=== PATIENT | female | born 2000 | race Caucasian/White ===

== ENCOUNTER 2021-08-01 21:08 | Outpatient (CLI) | payer BC | END 2021-08-01 21:34 | disposition home or self-care (01) | LOC: GENOP 21:08 | DX: O99.891 Other specified diseases and conditions complicating pregnancy (principal); R10.2 Pelvic and perineal pain; O23.43 Unspecified infection of urinary tract in pregnancy, third trimester; N39.0 Urinary tract infection, site not specified; O47.1 False labor at or after 37 completed weeks of gestation; Z3A.38 38 weeks gestation of pregnancy | CPT/HCPCS: 81001 ==

== ENCOUNTER 2021-08-12 17:31 | Inpatient (IN) | payer BC, OTHER ==
[~2021-08-12] VITALS: Ht 157.5 cm; Wt 88.9 kg
[2021-08-12 19:18] LABS: HEMOGLOBIN 13.5 gm/dl (12.3-15.3); RED BLOOD COUNT 4.11 M/UL (4.00-5.10); WHITE BLOOD COUNT 12.2 K/UL (4.5-11.0)
[2021-08-13] MEDS ORDERED: PRENATAL VITAM1 EAC3 PO (06:19)
[2021-08-13] MEDS ORDERED: TYLOPHEN500 MG PO (06:20)
[2021-08-14 06:20] LABS: HEMOGLOBIN 11.1 gm/dl (12.3-15.3)
[2021-08-16] MEDS ORDERED: HYDROCODON-ACE1 EAC4 PO (12:53)
[2021-08-16] MEDS ORDERED: FERROUS SULFAT325 M2 PO (12:53)
[2021-08-16] MEDS ORDERED: DOCUSATE SODIU100 MG PO (12:53)
[2021-08-16] MEDS ORDERED: DIFLUCAN150 MG PO (12:53)
[2021-08-16] MEDS ORDERED: IBUPROFEN600 MG PO (12:53)
== END 2021-08-16 14:41 | disposition home or self-care (01) | DRG 786 ==
LOC: GENOP 17:31 → OB 18:20
PROVIDERS: ADMIT Obstetrics & Gynecology
PROC: 4A1HXCZ Monitoring of Products of Conception, Cardiac Rate, External Approach (ICD-10-PCS; 2021-08-13)
PROC: 10907ZC Drainage of Amniotic Fluid, Therapeutic from Products of Conception, Via Natural or Artificial Opening (ICD-10-PCS; 2021-08-13)
PROC: 3E033VJ Introduction of Other Hormone into Peripheral Vein, Percutaneous Approach (ICD-10-PCS; 2021-08-13)
PROC: 10D00Z1 Extraction of Products of Conception, Low, Open Approach (ICD-10-PCS; principal; 2021-08-13 16:14)
DX: O76 Abnormality in fetal heart rate and rhythm complicating labor and delivery (principal); O41.1230 Chorioamnionitis, third trimester, not applicable or unspecified; O72.1 Other immediate postpartum hemorrhage; Z20.822 Contact with and (suspected) exposure to COVID-19; O99.214 Obesity complicating childbirth; E66.9 Obesity, unspecified; Z28.310 Unvaccinated for COVID-19; Z3A.39 39 weeks gestation of pregnancy; Z37.0 Single live birth; Z83.3 Family history of diabetes mellitus; Z82.49 Family history of ischemic heart disease and other diseases of the circulatory system; Z80.9 Family history of malignant neoplasm, unspecified
CPT/HCPCS: 36415; 81001; 82800; 85014; 85018; 85025; 85461; 86850; 86900; 86901; C9113; J0290; J0456; J0690; J1170; J1580; J2210; J2370; J2405; J2590; J2704; J2765; J2790; J7030

== ENCOUNTER → 2021-08-21 | Outpatient (CLI) | payer BC, OTHER ==
[~2021-08-21] MED LIST: DIFLUCAN150 MG PO; DOCUSATE SODIU100 MG PO; FERROUS SULFAT325 M2 PO; HYDROCODON-ACE1 EAC4 PO; IBUPROFEN600 MG PO; PRENATAL VITAM1 EAC3 PO; TYLOPHEN500 MG PO
== END ==
LOC: EROP 14:14
DX: Z53.9 Procedure and treatment not carried out, unspecified reason (principal)
CPT/HCPCS: G0463

== ENCOUNTER → 2021-08-22 | Outpatient (CLI) | payer BC, OTHER | LOC: EROP 07:27 | DX: Z53.9 Procedure and treatment not carried out, unspecified reason (principal) | CPT/HCPCS: G0463 ==

== ENCOUNTER → 2021-08-28 | Outpatient (CLI) | payer BC, OTHER | LOC: EROP 17:15 | DX: Z53.9 Procedure and treatment not carried out, unspecified reason (principal) | CPT/HCPCS: G0463 ==

== ENCOUNTER → 2021-08-29 | Outpatient (CLI) | payer BC, OTHER | LOC: EROP 16:31 | DX: Z53.9 Procedure and treatment not carried out, unspecified reason (principal) | CPT/HCPCS: G0463 ==

== ENCOUNTER → 2021-09-04 | Outpatient (CLI) | payer BC, OTHER | LOC: EROP 17:07 | DX: O90.0 Disruption of cesarean delivery wound (principal) | CPT/HCPCS: G0463 ==

== ENCOUNTER → 2021-09-05 | Outpatient (CLI) | payer BC, OTHER | LOC: EROP 07:22 | DX: O90.0 Disruption of cesarean delivery wound (principal) | CPT/HCPCS: G0463 ==

== ENCOUNTER → 2021-09-11 | Outpatient (CLI) | payer BC, OTHER | LOC: EROP 16:45 | DX: Z53.9 Procedure and treatment not carried out, unspecified reason (principal) | CPT/HCPCS: G0463 ==

== ENCOUNTER → 2021-09-12 | Outpatient (CLI) | payer BC | LOC: EROP 17:49 | DX: S31.109A Unspecified open wound of abdominal wall, unspecified quadrant without penetration into peritoneal cavity, initial encounter (principal); X58.XXXA Exposure to other specified factors, initial encounter | CPT/HCPCS: G0463 ==